=== PATIENT | male | born 1955 | race Caucasian/White ===

== ENCOUNTER 2021-07-16 10:07 | Observation (INO) ==
[2021-07-16] MEDS ORDERED: Ketorolac 30 MG/ML VIAL IM ONE (10:55)
[2021-07-16 11:02] LABS: Hematocrit 46.2 % (37.5-50.1); Hemoglobin 15.4 g/dL (12.9-16.9); Mean Corpuscular HGB Conc 33.3 g/dL (31.6-35.5); Mean Corpuscular Hemoglobin 29.7 pg (28.0-33.3); Mean Platelet Volume 9.6 fL (9.4-12.4); Platelet Count 210 K/mcL (140-400); Red Blood Count 5.19 M/mcL (4.19-5.50); Red Cell Distribution Width 14.7 % (11.5-14.5); White Blood Count 9.4 K/mcL (4.3-11.1)
[2021-07-16 11:03] LABS: Basophils % 0.2 %; Eosinophils # 0.1 K/mcL (0.0-0.6); Eosinophils % 0.7 %; Immature Granulocytes % 0.4 % (0-4); Lymphocytes # 0.4 K/mcL (0.6-4.6); Lymphocytes % 3.9 %; Monocytes # 1.1 K/mcL (0.0-1.3); Monocytes % 11.2 %; Neutrophils # 7.9 K/mcL (1.6-8.9); Segmented Neutrophils % 83.6 %
[2021-07-16 11:10] LABS: Alanine Aminotransferase 11 Units/L (7-52); Albumin 3.7 g/dL (3.5-5.7); Alkaline Phosphatase 67 Units/L (34-104); Aspartate Amino Transferase 14 Units/L (13-39); BUN/Creatinine Ratio 13 (6-26); Bilirubin,Total 0.9 mg/dL (0.3-1.0); Blood Urea Nitrogen 13 mg/dL (8-23); Calcium 9.1 mg/dL (8.6-10.3); Carbon Dioxide 24 mEq/L (23-29); Chloride 102 mEq/L (98-107); Globulin 3.6 g/dL (2.4-3.5); Glucose 116 mg/dL (70-105); INR 1.3; Osmolality,Calculated 281 (280-300); Potassium 4.1 mEq/L (3.5-5.1); Prothrombin Time 14.5 Seconds (9.4-12.1); Sodium 135 mEq/L (136-145); Total Protein 7.3 g/dL (6.4-8.9); eGFR For African Americans > 60 (> 60); eGFR For Non-African Americans > 60 (> 60)
[2021-07-16 11:11] LABS: Magnesium 2.1 mg/dL (1.6-2.6); Phosphorous 3.3 mg/dL (2.7-4.5); Troponin I < 0.03 ng/mL (< 0.04)
[2021-07-16] MEDS ORDERED: Isovue-370 500 ML BOTTLE IVP ONE (11:33)
[2021-07-16] MEDS ORDERED: Acetaminophen 325 MG TABLET PO PRN (13:37)
[2021-07-16] MEDS ORDERED: Ondansetron 4 MG/2 ML VIAL IVP PRN (13:37)
[2021-07-16] MEDS ORDERED: Naloxone 0.4 MG/ML INJ IVP PRN (13:37)
[2021-07-16] MEDS ORDERED: *HR* LORazepam 0.5 MG TABLET PO ONE (21:50)
[2021-07-17 08:58] LABS: Hematocrit 40.9 % (37.5-50.1); Hemoglobin 13.9 g/dL (12.9-16.9); Mean Corpuscular Hemoglobin 30.3 pg (28.0-33.3); Mean Corpuscular Volume 89.1 fL (83.0-100.0); Mean Platelet Volume 9.9 fL (9.4-12.4); Platelet Count 216 K/mcL (140-400); Red Blood Count 4.59 M/mcL (4.19-5.50); Red Cell Distribution Width 14.9 % (11.5-14.5); White Blood Count 6.4 K/mcL (4.3-11.1)
[2021-07-17] MEDS ORDERED: Metoprolol XL (24 HR) Succ 25 MG TAB.ER.24H PO SCH (09:15)
[2021-07-17 09:34] LABS: BUN/Creatinine Ratio 16 (6-26); Blood Urea Nitrogen 16 mg/dL (8-23); Calcium 8.5 mg/dL (8.6-10.3); Carbon Dioxide 29 mEq/L (23-29); Chloride 101 mEq/L (98-107); Glucose 90 mg/dL (70-105); Osmolality,Calculated 283 (280-300); Potassium 3.9 mEq/L (3.5-5.1); Sodium 136 mEq/L (136-145); eGFR For African Americans > 60 (> 60); eGFR For Non-African Americans > 60 (> 60)
[2021-07-17] MEDS: FINASTERIDE 1 MG PO SCH (10:00)
[2021-07-17] MEDS: Aspirin 81 MG TAB.CHEW PO SCH (10:00)
[2021-07-17] MEDS: Benzonatate 100 MG CAPSULE PO PRN ×2 (10:18→20:11)
[2021-07-17] MEDS ORDERED: Perflutren Lipid Microsphere 1.3 ML in 0.9 % Sodium Chloride 8.7 ML IVP PRN (14:23)
[2021-07-17] MEDS: Loratadine 10 MG TABLET PO SCH (21:55)
[2021-07-18] MEDS: Benzonatate 100 MG CAPSULE PO PRN ×2 (04:30→15:35)
[2021-07-18] MEDS ORDERED: *HR* Enoxaparin 40 MG/0.4 ML SYRINGE SQ SCH (06:00)
[2021-07-18 07:01] LABS: Basophils % 0.1 %; Eosinophils # 0.3 K/mcL (0.0-0.6); Hematocrit 40.1 % (37.5-50.1); Hemoglobin 13.5 g/dL (12.9-16.9); Immature Granulocytes % 0.3 % (0-4); Lymphocytes # 0.5 K/mcL (0.6-4.6); Lymphocytes % 7.8 %; Mean Corpuscular HGB Conc 33.7 g/dL (31.6-35.5); Mean Corpuscular Hemoglobin 29.9 pg (28.0-33.3); Mean Corpuscular Volume 88.9 fL (83.0-100.0); Mean Platelet Volume 9.4 fL (9.4-12.4); Monocytes # 0.9 K/mcL (0.0-1.3); Monocytes % 12.9 %; Platelet Count 208 K/mcL (140-400); Red Blood Count 4.51 M/mcL (4.19-5.50); Red Cell Distribution Width 14.8 % (11.5-14.5); Segmented Neutrophils % 74.9 %; White Blood Count 6.7 K/mcL (4.3-11.1)
[2021-07-18 07:26] LABS: BUN/Creatinine Ratio 11 (6-26); Blood Urea Nitrogen 12 mg/dL (8-23); Calcium 8.7 mg/dL (8.6-10.3); Carbon Dioxide 29 mEq/L (23-29); Chloride 102 mEq/L (98-107); Glucose 101 mg/dL (70-105); Osmolality,Calculated 282 (280-300); Potassium 4.3 mEq/L (3.5-5.1); Sodium 136 mEq/L (136-145); eGFR For African Americans > 60 (> 60); eGFR For Non-African Americans > 60 (> 60)
[2021-07-18 07:58] VITALS: BP 115/76; PULSE 81; RESP 18
[2021-07-18] MEDS ORDERED: Furosemide 20 MG TABLET PO SCH (09:00)
[2021-07-18] MEDS ORDERED: Metoprolol XL (24 HR) Succ 25 MG TAB.ER.24H PO SCH (09:00)
[2021-07-18] MEDS: Aspirin 81 MG TAB.CHEW PO SCH (09:30)
[2021-07-18] MEDS: Loratadine 10 MG TABLET PO SCH (09:30)
[2021-07-18] MEDS: FINASTERIDE 1 MG PO SCH (09:32)
[2021-07-18 10:33] VITALS: O2SAT 112
[2021-07-18 10:43] VITALS: TEMP 98.7
[2021-07-19] MEDS ORDERED: Cholecalciferol (D-3) 1,000 UNIT (25MCG) TABLET PO SCH (09:00)
== END 2021-07-18 18:20 | disposition home or self-care (01) ==
LOC: EMEROOPIK 10:07 → INPPIK 10:07
PROVIDERS: ADMIT Internal Medicine; ATTEND Internal Medicine